=== PATIENT | male | born 1980 | race African-American/Black ===

== ENCOUNTER 2020-03-22 14:18 | Inpatient (IN) | payer OTHER ==
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
--- NOTE | 2020-03-22 16:47 | HP ---
CIWA Score Nausea/Vomitin Muscle Tremors: 3 Anxiety: 3 Agitation: 2 Paroxysmal Sweats: 2 Orientation: 0-Oriented Tacttile Disturbances: 0-None Auditory Disturbances: 0-None Visual Disturbances: 0-None Headache: 3-Moderate CIWA-Ar Total Score: 15 - Admission Criteria OASAS Guidelines: Admission for Medically Managed Detox: Requires at least one of the followin. CIWA greater than 12 2. Seizures within the past 24 hours 3. Delirium tremens within the past 24 hours 4. Hallucinations within the past 24 hours 5. Acute intervention needed for co occurring medical disorder 6. Acute intervention needed for co occurring psychiatric disorder 7. Severe withdrawal that cannot be handled at a lower level of care (continued vomiting, continued diarrhea, abnormal vital signs) requiring intravenous medication and/or fluids 8. Admitting History and Physical - Smoking History Smoking history: Current every day smoker Have you smoked in the past 12 months: Yes Aproximately how many cigarettes per day: 10 Admission [facility] Chief Complaint: Seeking admission to detox from alcohol Allergies/Adverse Reactions: Allergies Allergy/AdvReac Type Severity Reaction Status Date / Time naproxen sodium [From Aleve] Allergy Severe Vomiting Verified 03/22/20 17:57 No Known Drug Allergies Allergy Verified 03/22/20 17:57 History of Present Illness: 40 years old male with a long history of alcohol dependence is seeking admission to detox. His last admission was for the period 04/16/2015 - 04/21/2015 and he reports that his last detoxification was at [facility]. He reports that that he drinks 2 pints of Vodka daily. He has medical history of bronchitis, psych. history of depression and he denies suicidal ideation at this time. He is unemployed, homeless and denies suicidal ideation at this time. 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 Exam Limitations: No Limitations - Ebola screening Have you traveled outside of the country in the last 21 days: No Have you had contact with anyone from an Ebola affected area: No Have you been sick,other than usual withdrawal symptoms: No Do you have a fever: No - Review of Systems Constitutional: Chills, Malaise, Changes in sleep EENT: reports: No Symptoms Reported Respiratory: reports: No Symptoms reported Cardiac: reports: No Symptoms Reported : reports: No Symptoms Reported Musculoskeletal: reports: Back Pain Integumentary: reports: Dryness, Flushing Neuro: reports: Headache, Tremors Endocrine: reports: No Symptoms Reported Hematology: reports: No Symptoms Reported Psychiatric: reports: Mood/Affect Appropiate, Orientated x3, Anxious, Depressed Other Systems: Reviewed and Negative Patient History - Patient Medical History Hx Anemia: No Hx Asthma: No Hx Chronic Obstructive Pulmonary Disease (COPD): Yes (Bronchitis) Hx Cancer: No Hx Cardiac Disorders: No Hx Congestive Heart Failure: No Hx Hypertension: No Hx Hypercholesterolemia: No Hx Pacemaker: No HX Cerebrovascular Accident: No Hx Seizures: No Hx Dementia: No Hx Diabetes: No Hx Gastrointestinal Disorders: No Hx Liver Disease: No Hx Genitourinary Disorders: No Hx Sexually Transmitted Disorders: No Hx Renal Disease (ESRD): No Hx Thyroid Disease: No Hx Human Immunodeficiency Virus (HIV): No (Negative 2019) Hx Hepatitis C: No Hx Depression: Yes (Not on medication) Hx Suicide Attempt: No (Denies suicidal ideation at this time.) Hx Bipolar Disorder: No Hx Schizophrenia: No - Patient Surgical History Past Surgical History: Yes Hx Neurologic Surgery: No Hx Cataract Extraction: No Hx Cardiac Surgery: No Hx Lung Surgery: No Hx Abdominal Surgery: No Hx Appendectomy: No Hx Cholecystectomy: No Hx Genitourinary Surgery: No Hx Orthopedic Surgery: Yes (LEFT FOOT-2014, RT ANKLE-2013) Other Surgical History: Hernia repair at age 11 Anesthesia Reaction: No - PPD History Documented Results: Negative w/proof Implanted On Prior [facility] Admission?: Yes Date: 04/18/15 PPD to be Administered?: Yes - Reproductive History Patient is a Female of Child Bearing Age (11 -55 yrs old): Yes (Male) - Smoking Cessation Smoking history: Current every day smoker Have you smoked in the past 12 months: Yes Aproximately how many cigarettes per day: 10 Hx Chewing Tobacco Use: No Initiated information on smoking cessation: Yes 'Breaking Loose' booklet given: 03/22/20 - Substance & Tx. History Hx Alcohol Use: Yes Hx Substance Use: Yes Substance Use Type: Alcohol, Marijuana Hx Substance Use Treatment: Yes ([facility]) - Substances abused Alcohol Substance route: Oral Frequency: Daily Amount used: 2 pints Vodka Age of first use: 15 Date of last use: 03/22/20 Admission Physical Exam [facility] - Physical General Appearance: Yes: Moderate Distress, Tremorous, Irritable, Sweating, Anxious HEENTM: Yes: Within Normal Limits Respiratory: Yes: Lungs Clear, Normal Breath Sounds, No Respiratory Distress Neck: Yes: Within Normal Limits Breast: Yes: Breast Exam Deferred Abdominal: Yes: Normal Bowel Sounds, Soft Genitourinary: Yes: Within Normal Limits Back: Yes: Normal Inspection Musculoskeletal: Yes: Back pain Extremities: Yes: Tremors Neurological: Yes: Normal Response Integumentary: Yes: Warm Lymphatic: Yes: Within Normal Limits - Diagnostic (1) Bronchitis Current Visit: Yes Status: Chronic (2) Nicotine dependence Current Visit: Yes Status: Chronic Qualifiers: Nicotine product type: cigarettes Substance use status: uncomplicated Qualified Code(s): F17.210 - Nicotine dependence, cigarettes, uncomplicated (3) Depression Current Visit: Yes Status: Chronic (4) Alcohol dependence with uncomplicated withdrawal Current Visit: Yes Status: Acute (5) Cannabis dependence Current Visit: Yes Status: Chronic Cleared for Admission [facility] - Detox or Rehab [facility] Level of Care: Medically Managed Detox Regimen/Protocol: Librium Claeared for Rehab Admission: No Inpatient Rehab Admission - Rehab Decision to Admit Inpatient rehab admission?: No
[2020-03-22] MEDS ORDERED: MAGNESIUM CITRATE 300 ML BOTTLE PO PRN (17:01)
[2020-03-22] MEDS ORDERED: ACETAMINOPHEN 325 MG TABLET (FP) PO PRN ×2 (17:01)
[2020-03-22] MEDS ORDERED: ONDANSETRON *ODT* 4 MG TABLET SL PRN (17:01)
[2020-03-22] MEDS ORDERED: METHOCARBAMOL 500 MG TABLET PO PRN (17:01)
[2020-03-22] MEDS ORDERED: NICOTINE POLACRILEX 2 MG GUM BUC PRN (17:01)
[2020-03-22] MEDS ORDERED: MAG HYDROX/AL HYDROX/SIMETH 30 ML UNIT-DOSE CUP PO PRN (17:01)
[2020-03-22] MEDS ORDERED: MENTHOL/PHENOL 1 EACH UD MM PRN (17:01)
[2020-03-22] MEDS ORDERED: chlordiazePOXIDE HCL 25 MG CAPSULE PO PRN (17:01)
[2020-03-22] MEDS ORDERED: MAGNESIUM HYDROX 2400MG/30ML ORAL SUSPENSION 30 ML CUP PO PRN (17:01)
--- OUTSIDE RECORDS SUMMARY | 2020-03-22 17:41 | XMS ---
:1980 Author Organization [facility] Re-disclosure Warning The records that you are about to access may contain information from federally- assisted alcohol or drug abuse programs. If such information is present, then the following federally mandated warning applies: This information has been disclosed to you from records protected by federal confidentiality rules (42 CFR part 2). The federal rules prohibit you from making any further disclosure of this information unless further disclosure is expressly permitted by the written consent of the person to whom it pertains or as otherwise permitted by 42 CFR part 2. A general authorization for the release of medical or other information is NOT sufficient for this purpose. The Federal rules restrict any use of the information to criminally investigate or prosecute any alcohol or drug abuse patient.The records that you are about to access may contain highly sensitive health information, the redisclosure of which is protected by Article 27-F of the [facility] Public Health law. If you continue you may haveaccess to information: Regarding HIV / AIDS; Provided by facilities licensed or operated by the [facility] Office of Mental Health; or Provided by the [facility] Office for People With Developmental Disabilities. If such information is present, then the following [facility] mandated warning applies: This information has been disclosed to you from confidential records which are protected by state law. State law prohibits you from making any further disclosure of this information without the specific written consent of the person to whom it pertains, or as otherwise permitted by law. Any unauthorized further disclosure in violation of state law may result in a fine or prison sentence or both. A general authorization for the release of medical or other information is NOT sufficient authorization for further disclosure. Allergies and Adverse Reactions Type Description Substance Reaction Status Data Source(s ) Drug allergy Aleve Naproxen Unknown Active eCW3 ([facility]) Encounters Encounter Providers Location Date Indications Data Source(s ) Outpatient [facility] 10/13/2018 eCW3 ([facility] A[facility] 12:00:00 AM Health Care) EDT - 10/13/2018 12:00:00 AM EDT Medications Medication Brand Start Product Dose Route Administrative Pharmacy atus Indications Reaction Description Data Name Date Form Instructions Instructions Source(s) Hydroxyzine HydrOX 1.0 active HydrOXY zine eCW3 Hydrochlori Yzine 2018 {tabl HCl 50 mg ( [place] de 50 MG HCl 50 12:00: et_[place] Oral Tablet mg 00 AM _[facility] HydrOXYzine EDT ed} Care) HCl 50 mg Problems, Conditions, and Diagnoses Code Display Name Description Problem Type Effective Data Sour ce(s) Dates F41.9 Anxiety Anxiety Problem 10/13/2018 eCW3 ([place] 12:00:[address] [facility] EDT Care) F12.10 Cannabis abuse, Cannabis abuse, Problem 03/15/2018 eCW3 ([place] uncomplicated uncomplicated 12:00:00 AM [facility] EDT Care) Results ID Date Data Source [id number] 03/18/2020 12:00:00 AM EDT [facility] Name Value Range Interpretation Code Description Data Clara rce(s) Supporting Document(s ) 2019-nCoV [facility] RNA XXX [facility]+probe- Imp This lab was ordered by [facility] and reported by [employer] ID Date Data Source [id number] 02/07/2020 08:47:00 PM EDT [facility] Name Value Range Interpretation Code Description Data Clara rce(s) Supporting Document(s ) Styles ID [facility] NOW COVID-19 assay This lab was ordered by [facility] and reported by [facility]. Procedure Social History Code Duration Value Status Description Data Source(s ) Smoking 10/13/2018 Current Smoker completed Current Smoker eCW3 ( [facility] 12:00:00 AM EDT Health Ca re) Current Smoker completed Current Smoker eCW3 ( [facility]) Vital Signs ID Date Data Source UNK Name Value Range Interpretation Code Description Data Source(s) Diastolic blood 76 mm[Hg] 76 mm[Hg] eCW3 ([facility]) Systolic blood 111 mm[Hg] 111 mm[Hg] eCW3 ([facility]) Body temperature 98.9 [degF] 98.9 [degF] eCW3 ( [facility]) Heart rate 18 /min 18 /min eCW3 ([facility]) Body mass index 31.32 kg/m2 31.32 kg/m2 eCW3 ([facility]indsay (BMI) [Ratio] [facility]) Body weight 200 [lb_av] 200 [lb_av] eCW3 ([facility]) Body height [in_i] eCW3 ([facility]) Patient Treatment Plan of Care Planned Activity Planned Date Details Description Data Source (s) Hydroxyzine Hydrochloride 10/13/2018 12:00:00 eCW3 ([facility] 50 MG Oral Tablet AM EDT Health Car e)
[2020-03-22] MEDS: chlordiazePOXIDE HCL 25 MG CAPSULE PO SCH (22:01)
[2020-03-22] MEDS: THIAMINE HCL 100 MG TABLET (FP) PO SCH (22:02)
[2020-03-22] MEDS: MELATONIN 5 MG TABLETS PO SCH (22:02)
[2020-03-23] MEDS: chlordiazePOXIDE HCL 25 MG CAPSULE PO SCH ×4 (05:24→22:43)
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
[2020-03-23] MEDS: NICOTINE 14 MG/24 HOURS TOPICAL PATCH TD SCH (11:07)
[2020-03-23] MEDS: PRENATAL VITAMINS W/ FOLIC ACID TABLET (FP) PO SCH (11:07)
--- NOTE | 2020-03-23 11:39 | PN ---
S CIWA - CIWA Score Nausea/Vomitin-No Nausea/No Vomiting Muscle Tremors: None Anxiety: 3 Agitation: 2 Paroxysmal Sweats: 3 Orientation: 0-Oriented Tacttile Disturbances: 0-None Auditory Disturbances: 0-None Visual Disturbances: 0-None Headache: 2-Mild CIWA-Ar Total Score: 10 BHS Progress Note (SOAP) Subjective: c/o sweats, anxiety, and headache. Objective: 03/23/20 11:38 Vital Signs 03/23/20 03/23/20 06:29 08:45 Temperature 97.3 F L 97.1 F L Pulse Rate 65 69 Respiratory 18 18 Rate Blood Pressure 104/71 122/79 O2 Sat by Pulse 100 Oximetry (%) Labs pending. Assessment: 03/23/20 11:39 AOX3, in no acute respiratory distress. Full ROM, ambulating in the unit. Withdrawal symptoms. Plan: continue detox.
[2020-03-23 11:51] LABS: HEMATOCRIT 39.7 % (35.4-49); HEMOGLOBIN 13.1 GM/dL (11.7-16.9); MCH 32.2 pg (25.7-33.7); MEAN CELL VOLUME 97.6 fl (80-96); MEAN PLT VOLUME 9.6 fl (7.5-11.1); PLATELET COUNT 168 K/MM3 (134-434); RBC 4.07 M/mm3 (4.00-5.60); WHITE BLOOD COUNT 5.4 K/mm3 (4.0-10.0)
[2020-03-23 11:55] LABS: ALBUMIN 3.3 g/dl (3.4-5.0); BILIRUBIN,TOTAL 0.4 mg/dL (0.2-1); BLOOD UREA NITROGEN 18.2 mg/dL (7-18); CALCIUM 7.8 mg/dL (8.5-10.1); CREATININE 1.1 mg/dL (0.55-1.3); POTASSIUM 4.5 mmol/L (3.5-5.1); TOT PROT 6.7 g/dl (6.4-8.2)
--- NOTE | 2020-03-23 16:15 | EKG ---
Test Reason : Blood Pressure : / mmHG Vent. Rate : 070 BPM Atrial Rate : 070 BPM P-R Int : 128 ms QRS Dur : 096 ms QT Int : 390 ms P-R-T Axes : 043 074 049 degrees QTc Int : 421 ms NORMAL SINUS RHYTHM NORMAL ECG NO PREVIOUS ECGS AVAILABLE Confirmed by MD Joe, Audie ([id number]) on 03/23/2020 4:14:29 PM Referred By: Jarrett Cuenca Confirmed By:Audie Diaz MD
[2020-03-23] MEDS: THIAMINE HCL 100 MG TABLET (FP) PO SCH (22:44)
[2020-03-23] MEDS: MELATONIN 5 MG TABLETS PO SCH (22:45)
[2020-03-24] MEDS: chlordiazePOXIDE HCL 25 MG CAPSULE PO SCH ×4 (06:21→22:13)
[2020-03-24] MEDS: PRENATAL VITAMINS W/ FOLIC ACID TABLET (FP) PO SCH (10:40)
[2020-03-24] MEDS: NICOTINE 14 MG/24 HOURS TOPICAL PATCH TD SCH (10:40)
--- NOTE | 2020-03-24 13:34 | PN ---
S CIWA - CIWA Score Nausea/Vomitin-Mild Nausea/No Vomiting Muscle Tremors: 2 Anxiety: 2 Agitation: 0-Normal Activity Paroxysmal Sweats: 1-Minimal [place] Moist Orientation: 0-Oriented Tacttile Disturbances: 0-None Auditory Disturbances: 0-None Visual Disturbances: 1-Very Mild Sensitivity Headache: 1-Very Mild CIWA-Ar Total Score: 8 S Progress Note (SOAP) Subjective: 40 years old male was admitted on 03/22/20 for alcohol withdrawal sx management treating with librium detox regiment feeling ok today ate breakfast and lunch in room resting in bed discussing aftercare with staff mr bennett prefers [facility] for alcohol abuse treatment Objective: 03/24/20 13:36 Vital Signs - 24 hr 03/23/20 03/23/20 03/24/20 16:29 20:27 06:50 Temperature 97.8 F 97.8 F 97.0 F L Pulse Rate 67 74 65 Respiratory 18 18 18 Rate Blood Pressure 131/90 118/77 102/73 O2 Sat by Pulse 96 99 Oximetry (%) 03/24/20 03/24/20 08:32 12:51 Temperature 97.1 F L 97.5 F L Pulse Rate 82 108 H Respiratory 16 18 Rate Blood Pressure 109/76 117/77 O2 Sat by Pulse 100 Oximetry (%) Laboratory Tests 03/22/20 03/23/20 03/23/20 18:00 07:50 07:50 WBC 5.4 RBC 4.07 Hgb 13.1 Hct 39.7 MCV 97.6 H MCH 32.2 MCHC 33.0 RDW 15.0 D Plt Count 168 MPV 9.6 Sodium Potassium Chloride Carbon Dioxide Anion Gap BUN Creatinine Est GFR (CKD-EPI)AfAm Est GFR (CKD-EPI)NonAf Random Glucose Calcium Total Bilirubin AST ALT Alkaline Phosphatase Total Protein Albumin Syphilis Serology Non-reactive COVID-19 ([facility]) Not detected 03/23/20 07:50 WBC RBC Hgb Hct MCV MCH MCHC RDW Plt Count MPV Sodium 141 Potassium 4.5 Chloride 110 H Carbon Dioxide 25 Anion Gap 6 L BUN 18.2 H Creatinine 1.1 Est GFR (CKD-EPI)AfAm 97.49 Est GFR (CKD-EPI)NonAf 84.12 Random Glucose 79 Calcium 7.8 L Total Bilirubin 0.4 AST 32 ALT 24 Alkaline Phosphatase 67 Total Protein 6.7 Albumin 3.3 L Syphilis Serology COVID-19 ([facility]) lab noted Assessment: 03/24/20 13:38 alcohol withdrawal Plan: librium regiment
[2020-03-24] MEDS: MELATONIN 5 MG TABLETS PO SCH (22:13)
[2020-03-24] MEDS: THIAMINE HCL 100 MG TABLET (FP) PO SCH (22:13)
[2020-03-25] MEDS ORDERED: chlordiazePOXIDE HCL 10 MG CAPSULE PO PRN
[2020-03-25] MEDS: chlordiazePOXIDE HCL 10 MG CAPSULE PO SCH ×4 (05:28→22:07)
[2020-03-25] MEDS: NICOTINE 14 MG/24 HOURS TOPICAL PATCH TD SCH (09:54)
[2020-03-25] MEDS: PRENATAL VITAMINS W/ FOLIC ACID TABLET (FP) PO SCH (10:06)
--- NOTE | 2020-03-25 12:32 | PN ---
S CIWA - CIWA Score Nausea/Vomitin-No Nausea/No Vomiting Muscle Tremors: 1-None Visible, but [place] Anxiety: 1-Mildly Anxious Agitation: 0-Normal Activity Paroxysmal Sweats: No Perspiration Orientation: 0-Oriented Tacttile Disturbances: 0-None Auditory Disturbances: 0-None Visual Disturbances: 1-Very Mild Sensitivity Headache: 1-Very Mild CIWA-Ar Total Score: 4 BHS Progress Note (SOAP) Subjective: 40 years old male was admitted on 03/22/20 for alcohol withdrawal sx management treating with librium detox regiment requests ensure due to "lost" lot of weight bmi 28.5 risks of overweight discussed ensure 60ml po od for satisfaction Objective: 03/25/20 12:31 Vital Signs - 24 hr 03/24/20 03/24/20 03/24/20 12:51 16:30 20:33 Temperature 97.5 F L 97.3 F L 97.3 F L Pulse Rate 108 H 90 76 Respiratory 18 18 17 Rate Blood Pressure 117/77 120/72 127/90 O2 Sat by Pulse 100 99 Oximetry (%) 03/25/20 03/25/20 06:17 09:03 Temperature 97.5 F L 97.3 F L Pulse Rate 68 75 Respiratory 18 18 Rate Blood Pressure 107/67 115/79 O2 Sat by Pulse 100 100 Oximetry (%) Laboratory Tests 03/22/20 03/23/20 03/23/20 18:00 07:50 07:50 WBC 5.4 RBC 4.07 Hgb 13.1 Hct 39.7 MCV 97.6 H MCH 32.2 MCHC 33.0 RDW 15.0 D Plt Count 168 MPV 9.6 Sodium Potassium Chloride Carbon Dioxide Anion Gap BUN Creatinine Est GFR (CKD-EPI)AfAm Est GFR (CKD-EPI)NonAf Random Glucose Calcium Total Bilirubin AST ALT Alkaline Phosphatase Total Protein Albumin Syphilis Serology Non-reactive COVID-19 ([facility]) Not detected 03/23/20 07:50 WBC RBC Hgb Hct MCV MCH MCHC RDW Plt Count MPV Sodium 141 Potassium 4.5 Chloride 110 H Carbon Dioxide 25 Anion Gap 6 L BUN 18.2 H Creatinine 1.1 Est GFR (CKD-EPI)AfAm 97.49 Est GFR (CKD-EPI)NonAf 84.12 Random Glucose 79 Calcium 7.8 L Total Bilirubin 0.4 AST 32 ALT 24 Alkaline Phosphatase 67 Total Protein 6.7 Albumin 3.3 L Syphilis Serology COVID-19 ([facility]) lab noted Assessment: 03/25/20 12:31 alcohol withdrawal Plan: librium regiment
[2020-03-25] MEDS: THIAMINE HCL 100 MG TABLET (FP) PO SCH (22:07)
[2020-03-25] MEDS: MELATONIN 5 MG TABLETS PO SCH (22:07)
[2020-03-26] MEDS: chlordiazePOXIDE HCL 10 MG CAPSULE PO SCH ×2 (06:03→17:33)
[2020-03-26] MEDS: NICOTINE 14 MG/24 HOURS TOPICAL PATCH TD SCH (09:44)
[2020-03-26] MEDS: PRENATAL VITAMINS W/ FOLIC ACID TABLET (FP) PO SCH (09:44)
--- NOTE | 2020-03-26 10:48 | PN ---
S CIWA - CIWA Score Nausea/Vomitin-No Nausea/No Vomiting Muscle Tremors: None Anxiety: 2 Agitation: 2 Paroxysmal Sweats: No Perspiration Orientation: 0-Oriented Tacttile Disturbances: 0-None Auditory Disturbances: 0-None Visual Disturbances: 0-None Headache: 2-Mild CIWA-Ar Total Score: 6 BHS Progress Note (SOAP) Subjective: alert,irritable,anxious,interrupted sleep,aching pain Objective: 03/26/20 16:27 Vital Signs Temperature 97.1 F L 03/26/20 12:53 Pulse Rate 99 H 03/26/20 12:53 Respiratory Rate 18 03/26/20 12:53 Blood Pressure 116/82 03/26/20 12:53 O2 Sat by Pulse Oximetry (%) 97 03/26/20 12:53 03/26/20 16:28 Laboratory Last Values WBC 5.4 K/mm3 (4.0-10.0) 03/23/20 07:50 RBC 4.07 M/mm3 (4.00-5.60) 03/23/20 07:50 Hgb 13.1 GM/dL (11.7-16.9) 03/23/20 07:50 Hct 39.7 % (35.4-49) 03/23/20 07:50 MCV 97.6 fl (80-96) H 03/23/20 07:50 MCH 32.2 pg (25.7-33.7) 03/23/20 07:50 MCHC 33.0 g/dl (32.0-35.9) 03/23/20 07:50 RDW 15.0 % (11.9-15.9) D 03/23/20 07:50 Plt Count 168 K/MM3 (134-434) 03/23/20 07:50 MPV 9.6 fl (7.5-11.1) 03/23/20 07:50 Sodium 141 mmol/L (136-145) 03/23/20 07:50 Potassium 4.5 mmol/L (3.5-5.1) 03/23/20 07:50 Chloride 110 mmol/L (98-107) H 03/23/20 07:50 Carbon Dioxide 25 mmol/L (21-32) 03/23/20 07:50 Anion Gap 6 MMOL/L (8-16) L 03/23/20 07:50 BUN 18.2 mg/dL (7-18) H 03/23/20 07:50 Creatinine 1.1 mg/dL (0.55-1.3) 03/23/20 07:50 Est GFR (CKD-EPI)AfAm 97.49 03/23/20 07:50 Est GFR (CKD-EPI)NonAf 84.12 03/23/20 07:50 Random Glucose 79 mg/dL (74-106) 03/23/20 07:50 Calcium 7.8 mg/dL (8.5-10.1) L 03/23/20 07:50 Total Bilirubin 0.4 mg/dL (0.2-1) 03/23/20 07:50 AST 32 U/L (15-37) 03/23/20 07:50 ALT 24 U/L (13-61) 03/23/20 07:50 Alkaline Phosphatase 67 U/L (45-117) 03/23/20 07:50 Total Protein 6.7 g/dl (6.4-8.2) 03/23/20 07:50 Albumin 3.3 g/dl (3.4-5.0) L 03/23/20 07:50 Syphilis Serology Non-reactive (NONREACTIVE) 03/23/20 07:50 COVID-19 ([facility]) Not detected (Not Detected) 03/22/20 18:00 Assessment: 03/26/20 16:28 withdrawal symptom Plan: continue detox librium regimen,discharge in am
[2020-03-26] MEDS: THIAMINE HCL 100 MG TABLET (FP) PO SCH (21:32)
[2020-03-26] MEDS: MELATONIN 5 MG TABLETS PO SCH (21:32)
[2020-03-27] MEDS ORDERED: chlordiazePOXIDE HCL 10 MG CAPSULE PO ONE (05:00)
[2020-03-27 10:20] VITALS: BP 116/70; PULSE 82; TEMP 98
[2020-03-27] MEDS: PRENATAL VITAMINS W/ FOLIC ACID TABLET (FP) PO SCH (10:46)
[2020-03-27] MEDS: NICOTINE 14 MG/24 HOURS TOPICAL PATCH TD SCH (10:46)
--- NOTE | 2020-03-27 10:56 | DS ---
[facility] Detox Discharge Summary Admission Date: 03/22/20 Discharge Date: 03/27/20 - History Present History: Alcohol Dependence, Cannabis Dependence Additional Comments: alert,oriented x 3 ambulation on the unit lung clear on auscultation bilaterally abdomen soft,no pain,no tenderness no edema of legs detox completed,no withdrawal symptom stable for discharge today follow up with after care program [facility] arrangement total time of discharge 35 minutes Pertinent Past History: bronchitis insomnia depression nicotine dependence - Physical Exam Results Vital Signs: Vital Signs Temperature 98.0 F 03/27/20 09:01 Pulse Rate 82 03/27/20 09:01 Respiratory Rate 18 03/27/20 09:01 Blood Pressure 116/70 03/27/20 09:01 O2 Sat by Pulse Oximetry (%) 97 03/27/20 09:01 Pertinent Admission Physical Exam Findings: withdrawal signs and symptom Vital Signs Temperature 98.0 F 03/27/20 09:01 Pulse Rate 82 03/27/20 09:01 Respiratory Rate 18 03/27/20 09:01 Blood Pressure 116/70 03/27/20 09:01 O2 Sat by Pulse Oximetry (%) 97 03/27/20 09:01 Laboratory Last Values WBC 5.4 K/mm3 (4.0-10.0) 03/23/20 07:50 RBC 4.07 M/mm3 (4.00-5.60) 03/23/20 07:50 Hgb 13.1 GM/dL (11.7-16.9) 03/23/20 07:50 Hct 39.7 % (35.4-49) 03/23/20 07:50 MCV 97.6 fl (80-96) H 03/23/20 07:50 MCH 32.2 pg (25.7-33.7) 03/23/20 07:50 MCHC 33.0 g/dl (32.0-35.9) 03/23/20 07:50 RDW 15.0 % (11.9-15.9) D 03/23/20 07:50 Plt Count 168 K/MM3 (134-434) 03/23/20 07:50 MPV 9.6 fl (7.5-11.1) 03/23/20 07:50 Sodium 141 mmol/L (136-145) 03/23/20 07:50 Potassium 4.5 mmol/L (3.5-5.1) 03/23/20 07:50 Chloride 110 mmol/L (98-107) H 03/23/20 07:50 Carbon Dioxide 25 mmol/L (21-32) 03/23/20 07:50 Anion Gap 6 MMOL/L (8-16) L 03/23/20 07:50 BUN 18.2 mg/dL (7-18) H 03/23/20 07:50 Creatinine 1.1 mg/dL (0.55-1.3) 03/23/20 07:50 Est GFR (CKD-EPI)AfAm 97.49 03/23/20 07:50 Est GFR (CKD-EPI)NonAf 84.12 03/23/20 07:50 Random Glucose 79 mg/dL (74-106) 03/23/20 07:50 Calcium 7.8 mg/dL (8.5-10.1) L 03/23/20 07:50 Total Bilirubin 0.4 mg/dL (0.2-1) 03/23/20 07:50 AST 32 U/L (15-37) 03/23/20 07:50 ALT 24 U/L (13-61) 03/23/20 07:50 Alkaline Phosphatase 67 U/L (45-117) 03/23/20 07:50 Total Protein 6.7 g/dl (6.4-8.2) 03/23/20 07:50 Albumin 3.3 g/dl (3.4-5.0) L 03/23/20 07:50 Syphilis Serology Non-reactive (NONREACTIVE) 03/23/20 07:50 COVID-19 ([facility]) Not detected (Not Detected) 03/22/20 18:00 Vital Signs Temperature 98.0 F 03/27/20 09:01 Pulse Rate 82 03/27/20 09:01 Respiratory Rate 18 03/27/20 09:01 Blood Pressure 116/70 03/27/20 09:01 O2 Sat by Pulse Oximetry (%) 97 03/27/20 09:01 - Treatment Hospital Course: Detox Protocol Followed, Detoxed Safely, Responded well, Discharged Condition Good, Rehab Referral Accepted - Medication Discharge Medications: Ambulatory Orders NK [No Known Home Medication] 04/16/15 - Diagnosis (1) Alcohol dependence with uncomplicated withdrawal Status: Acute (2) Bronchitis Status: Chronic (3) Cannabis dependence Status: Chronic (4) Depression Status: Chronic (5) Insomnia Status: Chronic (6) Nicotine dependence Status: Chronic Qualifiers: Nicotine product type: cigarettes Substance use status: uncomplicated Qualified Code(s): F17.210 - Nicotine dependence, cigarettes, uncomplicated - AMA Did Patient Leave Against Medical Advice: No
--- NOTE | 2020-03-27 10:56 | PN ---
[facility] CIWA - CIWA Score Nausea/Vomitin-No Nausea/No Vomiting Muscle Tremors: None Anxiety: 1-Mildly Anxious Agitation: 0-Normal Activity Paroxysmal Sweats: No Perspiration Orientation: 0-Oriented Tacttile Disturbances: 0-None Auditory Disturbances: 0-None Visual Disturbances: 0-None Headache: 0-None Present CIWA-Ar Total Score: 1 S Progress Note (SOAP) Subjective: alert,no complaint Objective: 03/27/20 15:34 Vital Signs Temperature 98.0 F 03/27/20 09:01 Pulse Rate 82 03/27/20 09:01 Respiratory Rate 18 03/27/20 09:01 Blood Pressure 116/70 03/27/20 09:01 O2 Sat by Pulse Oximetry (%) 97 03/27/20 09:01 Assessment: 03/27/20 15:34 detox completed,no withdrawal symptom Plan: stable for discharge today to rehab
== END 2020-03-27 13:28 | disposition other institution (70) | DRG 775 ==
LOC: YASAS 14:18 → Y3N 17:36
PROVIDERS: ADMIT Allergy & Immunology; ATTEND Allergy & Immunology
PROC: HZ2ZZZZ Detoxification Services for Substance Abuse Treatment (ICD-10-PCS; principal; 2020-03-22)
DX: F10.230 Alcohol dependence with withdrawal, uncomplicated (principal); F12.20 Cannabis dependence, uncomplicated; F16.20 Hallucinogen dependence, uncomplicated; F17.210 Nicotine dependence, cigarettes, uncomplicated; F32.9 Major depressive disorder, single episode, unspecified; G47.00 Insomnia, unspecified; J40 Bronchitis, not specified as acute or chronic; Z88.8 Allergy status to other drugs, medicaments and biological substances; Z98.890 Other specified postprocedural states; Z56.0 Unemployment, unspecified; Z59.0 Homelessness
CPT/HCPCS: 36415; 80053; 85027; 86780; 93005; 93010; U0003